=== PATIENT | male | born 1975 | race African-American/Black ===

== ENCOUNTER 2017-05-13 14:28 | Emergency (ER) | payer SELFPAY ==
[2017-05-13 14:43] VITALS: BP 135/63; PULSE 64; TEMP 98.3; BMI 40.6
--- NOTE | 2017-05-13 15:23 | PDOC ---
History of Present Illness - General History Source: Patient - History of Present Illness Initial Comments: 05/13/17 15:56 42 year old male with hives to hand after eating can tuna 5 days ago. denies respiratory symptoms, oral swelling. patient reports that he is visiting from [place], has a history of NIDDM requesting refill of "diabetic medications". patient currently denies polydypsia, polyphagia, polyuria. <Rebecca Mccarthy - Last Filed: 05/13/17 16:20> - History of Present Illness Initial Comments: 05/13/17 20:00 not seen by Nilam ALMONTE <Nilam Dexter - Last Filed: 05/13/17 20:00> - General Chief Complaint: Hives Stated Complaint: DIABETIC Time Seen by Provider: 05/13/17 15:22 Past History <Rebecca Mccarthy - Last Filed: 05/13/17 16:20> - Past Medical History Diabetes: Yes GI Disorders: Yes (hernia) HTN: Yes - Psycho/Social/Smoking Cessation Hx Suicidal Ideation: No Smoking History: Never smoked Hx Alcohol Use: Yes Drug/Substance Use Hx: No <Nilam Dexter - Last Filed: 05/13/17 20:00> - Past Medical History Allergies/Adverse Reactions: Allergies Allergy/AdvReac Type Severity Reaction Status Date / Time No Known Allergies Allergy Verified 05/13/17 14:43 Home Medications: Ambulatory Orders Diphenhydramine HCl [Benadryl -] 25 mg PO Q8H PRN #21 capsule 05/13/17 Hydrocortisone 1 applic TP BID #1 oint...g. 05/13/17 Review of Systems - Review of Systems Integumentary: Yes: Pruritus, Rash <Rebecca Mccarthy - Last Filed: 05/13/17 16:20> *Physical Exam - Vital Signs Last Vital Signs Temp Pulse Resp BP Pulse Ox 98.3 F 64 18 135/63 98 05/13/17 14:39 05/13/17 14:39 05/13/17 14:39 05/13/17 14:39 05/13/17 14:39 - Physical Exam General Appearance: Yes: Appropriately Dressed Respiratory/Chest: positive: Lungs Clear, Normal Breath Sounds Cardiovascular: positive: Regular Rhythm, Regular Rate Gastrointestinal/Abdominal: positive: Normal Bowel Sounds, Soft Extremity: positive: Normal Capillary Refill, Normal Inspection, Normal Range of Motion Integumentary: positive: Other (bug bite b/l arm) Neurologic: positive: Fully Oriented, Alert <Rebecca Mccarthy - Last Filed: 05/13/17 16:20> - Vital Signs Last Vital Signs Temp Pulse Resp BP Pulse Ox 98.3 F 64 18 135/63 98 05/13/17 14:39 05/13/17 14:39 05/13/17 14:39 05/13/17 14:39 05/13/17 14:39 <Nilam Dexter - Last Filed: 05/13/17 20:00> *DC/Admit/Observation/Transfer <Rebecca Mccarthy - Last Filed: 05/13/17 16:20> <Nilam Dexter - Last Filed: 05/13/17 20:00> Diagnosis at time of Disposition: Bug bite Qualifiers: Encounter type: initial encounter Qualified Code(s): W57.XXXA - Bitten or stung by nonvenomous insect and other nonvenomous arthropods, initial encounter - Discharge Dispostion Disposition: HOME Condition at time of disposition: Stable - Prescriptions Prescriptions: Diphenhydramine HCl [Benadryl -] 25 mg PO Q8H PRN #21 capsule PRN Reason: For Itching Hydrocortisone 1 applic TP BID #1 oint...g. - Referrals Referrals: Reshma Mcallister MD [Staff Physician] - - Patient Instructions Printed Discharge Instructions: How to Care for an Insect Bite or Sting Additional Instructions: please follow up in the clinic for diabetic medication refill and follow up. take claritin as prescribed for allergic reaction. apply hydrocortisone as prescribed.
[2017-05-13] MEDS ORDERED: LORATADINE 10 MG TABLET PO ONE (15:54)
[2017-05-13] MEDS ORDERED: LORATADINE 10 MG TABLET ONE (15:59)
== END 2017-05-13 16:28 | disposition home or self-care (01) ==
LOC: JERFT 14:28
DX: L50.0 Allergic urticaria (principal); S40.862A Insect bite (nonvenomous) of left upper arm, initial encounter; S40.861A Insect bite (nonvenomous) of right upper arm, initial encounter; W57.XXXA Bitten or stung by nonvenomous insect and other nonvenomous arthropods, initial encounter; Y93.9 Activity, unspecified; Y92.9 Unspecified place or not applicable; E11.9 Type 2 diabetes mellitus without complications; Z79.84 Long term (current) use of oral hypoglycemic drugs
CPT/HCPCS: 99281-25